=== PATIENT | male | born 2000 | race Caucasian/White ===

== ENCOUNTER 2022-06-01 05:24 | Emergency (ER) | payer OTHER ==
[~2022-06-01] VITALS: Ht 188 cm; Wt 104.5 kg
[2022-06-01 06:06] LABS: HEMATOCRIT 51.7 % (42.0-52.0); HEMOGLOBIN 17.4 g/dl (13.5-17.5); MEAN CORPUSCULAR HEMOGLOBIN 31.5 pg (27.0-33.0); MEAN CORPUSCULAR HGB CONC 33.7 g/dl (32.0-36.5); MEAN CORPUSCULAR VOLUME 93.7 fl (80.0-96.0); PLATELET COUNT, AUTOMATED 256 10^3/uL (150-450); RED BLOOD COUNT 5.52 10^6/uL (4.30-6.10); WHITE BLOOD COUNT 8.5 10^3/uL (4.0-10.0)
[2022-06-01 06:32] LABS: AMPHETAMINES LEVEL URINE NEGATIVE (NEGATIVE); BARBITURATES URINE NEGATIVE (NEGATIVE); BENZODIAZEPINES URINE NEGATIVE (NEGATIVE); COCAINE METABOLITE URINE NEGATIVE (NEGATIVE); METHADONE URINE NEGATIVE (NEGATIVE); OPIATES URINE NEGATIVE (NEGATIVE); PHENCYCLIDINE URINE NEGATIVE (NEGATIVE)
[2022-06-01 06:33] LABS: CANNABINOIDS URINE NEGATIVE (NEGATIVE)
[2022-06-01 06:39] LABS: RSV AMPLIFICATION NEGATIVE (NEGATIVE)
[2022-06-01 06:46] LABS: ETHYL ALCOHOL (ETHANOL) 0.127 % (0.000-0.010)
[2022-06-01 06:48] LABS: ACETAMINOPHEN LEVEL < 2.0 UG/ML (10.0-20.0); ALBUMIN 4.4 G/DL (3.2-5.2); ALKALINE PHOSPHATASE 99 U/L (46-116); ALT/SGPT 34 U/L (7.0-40); AST/SGOT 24 U/L (<34); BILIRUBIN,DIRECT 0.1 MG/DL (<0.4); BILIRUBIN,TOTAL 0.5 MG/DL (0.3-1.2); BLOOD UREA NITROGEN 14 MG/DL (9-23); CALCIUM LEVEL 9.4 MG/DL (8.5-10.1); CARBON DIOXIDE LEVEL 26 MMOL/L (20-31); CHLORIDE LEVEL 110 MMOL/L (98-107); CREATININE FOR GFR 0.98 MG/DL (0.70-1.30); GLUCOSE, FASTING 91 MG/DL (60-100); POTASSIUM SERUM 4.6 MMOL/L (3.5-5.1); SALICYLATE LEVEL < 3.0 MG/DL (<30); SODIUM LEVEL 144 MMOL/L (136-145); TOTAL PROTEIN 7.7 G/DL (5.7-8.2)
[2022-06-01 06:51] LABS: THYROID STIMULATING HORMONE 1.935 uIU/ML (0.48-4.17)
[2022-06-01] MEDS ORDERED: HOME MED LIST COMPLETE! XX SCH (11:10)
[2022-06-01] MEDS ORDERED: ACETAMINOPHEN TAB 650MG DOSE (2X325MG) PO ONE (13:20)
[2022-06-01] MEDS ORDERED: NICOTINE 21MG/24HR 1 EA TRANSDERMAL TD ONE (18:45)
[2022-06-02 17:16] LABS: RSV AMPLIFICATION NEGATIVE (NEGATIVE)
[2022-06-02] MEDS ORDERED: NICOTINE 21MG/24HR 1 EA TRANSDERMAL TD ONE (19:55)
[2022-06-02 20:54] VITALS: BP 143/92
== END 2022-06-02 21:15 ==
LOC: M ED 05:24
DX: R45.851 Suicidal ideations (principal)